=== PATIENT | male | born 1975 | race Caucasian/White ===

== ENCOUNTER 2023-02-22 07:57 | Day surgery (SDC) | payer OTHER ==
[~2023-02-22] VITALS: Ht 185.4 cm; Wt 120.2 kg
[~2023-02-22 07:57] MED LIST: FAMO40TA3 PO; NS 1,000 ML IV ONE
[2023-02-22] MEDS ORDERED: propofoL 200 MG/20 ML VIAL As Ordered ONE ×2 (09:28→10:19)
[2023-02-22] MEDS ORDERED: fentaNYL 100 MCG/2 ML INJECTION As Ordered ONE (09:28)
[2023-02-22 10:34] VITALS: BP 106/58; TEMP 97.5; O2SAT 97
== END 2023-02-22 10:38 | disposition home or self-care (01) ==
LOC: M OPP 07:57
PROVIDERS: ATTEND Internal Medicine Gastroenterology
DX: Z12.11 Encounter for screening for malignant neoplasm of colon (principal); K64.0 First degree hemorrhoids; K22.89 Other specified disease of esophagus; R12 Heartburn; K44.9 Diaphragmatic hernia without obstruction or gangrene; F17.220 Nicotine dependence, chewing tobacco, uncomplicated; G47.33 Obstructive sleep apnea (adult) (pediatric)
CPT/HCPCS: 43239; 45378; 88305; J3010